=== PATIENT | female | born 1950 | race Two or more races ===

== ENCOUNTER 2017-05-18 11:30 | Day surgery (SDC) | payer OTHER ==
[~2017-05-18 11:30] MED LIST: DITROPAN XL5 MG PO; LOSARTAN-HCTZ1 EAC1 PO; MULTIVITAMINS1 EAC9 PO; NORVASC5 MG PO; SYNTHROID100 MCG PO; TAMOXIFEN CITRA20 MG PO
== END 2017-05-18 17:30 | disposition home or self-care (01) ==
LOC: CIR.AMB 11:30
DX: S32.018A Other fracture of first lumbar vertebra, initial encounter for closed fracture (principal)

== ENCOUNTER 2020-06-18 07:47 | Outpatient (CLI) | payer OTHER | END 2020-06-18 07:50 | disposition home or self-care (01) | LOC: RX STUDY 07:47 | PROVIDERS: ATTEND Internal Medicine Gastroenterology | DX: K44.9 Diaphragmatic hernia without obstruction or gangrene (principal); R10.13 Epigastric pain ==

== ENCOUNTER 2021-12-31 07:45 | Inpatient (IN) | payer OTHER ==
[~2021-12-31] VITALS: Ht 160 cm; Wt 78.9 kg
[2021-12-31] MEDS ORDERED: TIROSINT75 MCG PO (08:16)
[2021-12-31] MEDS ORDERED: SINGULAIR10 MG PO (08:16)
[2021-12-31] MEDS ORDERED: PROTONIX40 M1 PO (08:17)
[2021-12-31] MEDS ORDERED: LOSARTAN-HCTZ1 EAC2 PO (08:17)
[2021-12-31] MEDS ORDERED: VITAMIN B 12 PO (08:18)
[2022-01-04] MEDS ORDERED: HYDRODIURIL12.5 MG (16:23)
[2022-01-04] MEDS ORDERED: GABAPENTIN300 M2 (16:23)
[2022-01-06] MEDS ORDERED: BACTRIM DS TAB1 EACH PO (07:13)
[2022-01-06] MEDS ORDERED: INTEGRA PLUS C1 EACH PO (07:13)
[2022-01-06] MEDS ORDERED: OXYC1TAB9 PO (07:13)
[2022-01-06] MEDS ORDERED: XARELTO10 MG PO (07:13)
== END 2022-01-06 18:04 | DRG 470 ==
LOC: O/R 01-04 05:00 → SURH 01-04 05:00
PROVIDERS: ADMIT Orthopaedic Surgery Sports Medicine; ATTEND Orthopaedic Surgery Sports Medicine
PROC: 0SRD0J9 Replacement of Left Knee Joint with Synthetic Substitute, Cemented, Open Approach (ICD-10-PCS; principal; 2022-01-04 10:45)
DX: M17.12 Unilateral primary osteoarthritis, left knee (principal); I10 Essential (primary) hypertension; E03.9 Hypothyroidism, unspecified; E11.9 Type 2 diabetes mellitus without complications; Z96.659 Presence of unspecified artificial knee joint; Z20.822 Contact with and (suspected) exposure to COVID-19